=== PATIENT | male | born 1960 | race African-American/Black ===

== ENCOUNTER 2022-04-19 10:24 | Inpatient (IN) | payer OTHER ==
[2022-04-19 11:48] VITALS: BMI 26.4
[2022-04-19] MEDS ORDERED: MAG HYDROX/AL HYDROX/SIMETH 30 ML UNIT-DOSE CUP PO PRN ×2 (15:48→16:09)
[2022-04-19] MEDS ORDERED: P-EPHED 60MG/TRIPROLIDI 2.5MG TABLET PO PRN (15:48)
[2022-04-19] MEDS ORDERED: hydrOXYzine PAMOATE 25 MG CAPSULE (FP) PO PRN ×2 (15:48→16:09)
[2022-04-19] MEDS ORDERED: POLYETHYLENE GLYCOL (HEALTHYLAX) 3350 17 GM PACKET PO PRN ×2 (15:48→16:09)
[2022-04-19] MEDS ORDERED: ACETAMINOPHEN 325 MG TABLET (FP) PO PRN ×3 (15:48→16:09)
[2022-04-19] MEDS ORDERED: IBUPROFEN 400 MG TABLET (FP) PO PRN ×2 (15:48→16:09)
[2022-04-19] MEDS ORDERED: LOPERAMIDE HCL 2 MG CAPSULE PO PRN ×2 (15:48→16:09)
[2022-04-19] MEDS ORDERED: NICOTINE 10 MG CARTRIDGE (INHALER) IH PRN ×2 (15:48→16:09)
[2022-04-19] MEDS ORDERED: MAGNESIUM HYDROX 2400MG/30ML ORAL SUSPENSION 30 ML CUP PO PRN ×2 (15:48→16:09)
[2022-04-19] MEDS ORDERED: guaiFENesin 200 MG/10 ML 10 ML UNIT-DOSE CUPS PO PRN (15:48)
[2022-04-19] MEDS ORDERED: NICOTINE POLACRILEX 4 MG GUM BUC PRN ×2 (15:48→16:09)
[2022-04-19] MEDS ORDERED: BENZOCAINE/MENTHOL (CHLORASEPTIC ) LOZENGE MM PRN ×2 (15:48→16:09)
[2022-04-19] MEDS ORDERED: NICOTINE 21 MG/24 HOURS TOPICAL PATCH TD PRN ×2 (15:48→16:09)
[2022-04-19] MEDS ORDERED: BISMUTH SUBSALICYLATE 524 MG/30 ML PO PRN (16:09)
[2022-04-19] MEDS ORDERED: ONDANSETRON *ODT* 4 MG TABLET SL PRN (16:09)
[2022-04-19] MEDS ORDERED: IBUPROFEN 600 MG TABLET (FP) PO PRN (16:09)
[2022-04-19] MEDS ORDERED: DICYCLOMINE HCL 10 MG CAPSULE PO PRN (16:09)
[2022-04-19] MEDS ORDERED: THIAMINE HCL 100 MG TABLET (FP) PO SCH ×2 (22:00)
[2022-04-19] MEDS ORDERED: MELATONIN 5 MG TABLETS PO SCH ×2 (22:00)
[2022-04-19] MEDS: APIXABAN 5 MG TABLET PO SCH (22:37)
[2022-04-20] MEDS: METHOCARBAMOL 500 MG TABLET PO PRN ×2 (02:34→10:46)
[2022-04-20] MEDS ORDERED: PRENATAL VITAMINS W/ FOLIC ACID TABLET (FP) PO SCH ×2 (10:00)
[2022-04-20] MEDS ORDERED: TORSEMIDE 20 MG TABLET (FP) PO SCH (10:00)
[2022-04-20] MEDS: APIXABAN 5 MG TABLET PO SCH (10:11)
[2022-04-20 12:51] VITALS: PULSE 109; RESP 18
[2022-04-20 15:02] LABS: CALCIUM 8.8 mg/dL (8.5-10.1)
[2022-04-20 15:03] LABS: BLOOD UREA NITROGEN 26.5 mg/dL (7-18)
[2022-04-20 15:05] LABS: CREATININE 1.5 mg/dL (0.55-1.3)
[2022-04-20 15:07] LABS: BILIRUBIN,TOTAL 2.4 mg/dL (0.2-1); HEMATOCRIT 31.1 % (35.4-49); MCH 20.8 pg (25.7-33.7); MCHC 28.8 g/dl (32.0-35.9); MEAN CELL VOLUME 72.2 fl (80-96); MEAN PLT VOLUME 9.3 fl (7.5-11.1); PLATELET COUNT 270 10^3/uL (134-434); RBC 4.31 M/mm3 (4.00-5.60); TOT PROT 7.4 g/dl (6.4-8.2); WHITE BLOOD COUNT 12.6 K/mm3 (4.0-10.0)
[2022-04-20 18:10] VITALS: BP 125/79; TEMP 98.2
[2022-04-20] MEDS ORDERED: APIXABAN 5 MG TABLET PO SCH (22:00)
[2022-04-20] MEDS ORDERED: ATORVASTATIN CA 40 MG TABLET (FP) PO SCH (22:00)
[2022-04-21] MEDS ORDERED: FERROUS SO4 325 MG TABLET (FP) PO SCH (10:00)
[2022-04-21] MEDS ORDERED: METOPROLOL TARTRATE 25 MG TABLET (FP) PO SCH (10:00)
[2022-04-21] MEDS ORDERED: DIGOXIN 0.125 MG TABLET PO SCH (10:00)
[2022-04-21] MEDS ORDERED: SACUBITRIL/VALSARTAN 24 MG-26 MG TABLET PO SCH (10:00)
== END 2022-04-20 18:15 | disposition other institution (70) | DRG 774 ==
LOC: YASAS 10:24 → Y3N 16:20
PROVIDERS: ADMIT Allergy & Immunology; ATTEND Surgery
PROC: HZ2ZZZZ Detoxification Services for Substance Abuse Treatment (ICD-10-PCS; principal; 2022-04-19)
DX: F10.20 Alcohol dependence, uncomplicated (principal); F14.20 Cocaine dependence, uncomplicated; F12.20 Cannabis dependence, uncomplicated; F17.210 Nicotine dependence, cigarettes, uncomplicated; D50.9 Iron deficiency anemia, unspecified; E78.00 Pure hypercholesterolemia, unspecified; I10 Essential (primary) hypertension; I48.91 Unspecified atrial fibrillation; Z79.01 Long term (current) use of anticoagulants; M25.562 Pain in left knee
CPT/HCPCS: 36415; 80053; 80162; 82140; 85027; 86780; 93005; 93010; C9803-CS; U0003; U0005

== ENCOUNTER 2022-04-20 18:38 | Inpatient (IN) | payer OTHER ==
[2022-04-20] MEDS ORDERED: ACETAMINOPHEN 325 MG TABLET (FP) PO PRN (21:16)
[2022-04-20] MEDS ORDERED: MAGNESIUM HYDROX 2400MG/30ML ORAL SUSPENSION 30 ML CUP PO PRN (21:16)
[2022-04-20] MEDS ORDERED: MAG HYDROX/AL HYDROX/SIMETH 30 ML UNIT-DOSE CUP PO PRN (21:16)
[2022-04-20] MEDS ORDERED: NICOTINE 10 MG CARTRIDGE (INHALER) IH PRN (21:16)
[2022-04-20] MEDS ORDERED: BENZOCAINE/MENTHOL (CHLORASEPTIC ) LOZENGE MM PRN (21:16)
[2022-04-20] MEDS ORDERED: LOPERAMIDE HCL 2 MG CAPSULE PO PRN (21:16)
[2022-04-20] MEDS ORDERED: guaiFENesin 200 MG/10 ML 10 ML UNIT-DOSE CUPS PO PRN (21:16)
[2022-04-20] MEDS ORDERED: POLYETHYLENE GLYCOL (HEALTHYLAX) 3350 17 GM PACKET PO PRN (21:16)
[2022-04-20] MEDS ORDERED: P-EPHED 60MG/TRIPROLIDI 2.5MG TABLET PO PRN (21:16)
[2022-04-20] MEDS: APIXABAN 5 MG TABLET PO SCH (22:21)
[2022-04-20] MEDS: MELATONIN 5 MG TABLETS PO SCH (22:22)
[2022-04-20] MEDS: THIAMINE HCL 100 MG TABLET (FP) PO SCH (22:22)
[2022-04-20] MEDS: ATORVASTATIN CA 40 MG TABLET (FP) PO SCH (22:22)
[2022-04-20] MEDS ORDERED: ACETAMINOPHEN 325 MG TABLET (FP) PO ONE (22:22)
[2022-04-20] MEDS: SACUBITRIL/VALSARTAN 24 MG-26 MG TABLET PO SCH (23:14)
[2022-04-21 10:09] LABS: HEMATOCRIT 29.9 % (35.4-49); HEMOGLOBIN 9.1 GM/dL (11.7-16.9); MCH 21.1 pg (25.7-33.7); MCHC 30.3 g/dl (32.0-35.9); MEAN CELL VOLUME 69.5 fl (80-96); PLATELET COUNT 262 10^3/uL (134-434); RDW 21.1 % (11.9-15.9); WHITE BLOOD COUNT 12.5 K/mm3 (4.0-10.0)
[2022-04-21] MEDS: FERROUS SO4 325 MG TABLET (FP) PO SCH (10:21)
[2022-04-21] MEDS: APIXABAN 5 MG TABLET PO SCH ×2 (10:21→23:51)
[2022-04-21] MEDS: PRENATAL VITAMINS W/ FOLIC ACID TABLET (FP) PO SCH (10:21)
[2022-04-21 10:56] LABS: CALCIUM 8.9 mg/dL (8.5-10.1)
[2022-04-21 10:57] LABS: ALBUMIN 4.1 g/dl (3.4-5.0); BLOOD UREA NITROGEN 24.3 mg/dL (7-18); CREATININE 1.5 mg/dL (0.55-1.3)
[2022-04-21 11:00] LABS: PHOSPHOROUS 2.7 mg/dL (2.5-4.9)
[2022-04-21] MEDS: TORSEMIDE 20 MG TABLET (FP) PO SCH (14:25)
[2022-04-21] MEDS: SACUBITRIL/VALSARTAN 24 MG-26 MG TABLET PO SCH ×2 (14:26→23:48)
[2022-04-21] MEDS: DIGOXIN 0.125 MG TABLET PO SCH ×2 (14:28→14:38)
[2022-04-21] MEDS: METOPROLOL TARTRATE 25 MG TABLET (FP) PO SCH (14:28)
[2022-04-21] MEDS: THIAMINE HCL 100 MG TABLET (FP) PO SCH (23:48)
[2022-04-21] MEDS: ATORVASTATIN CA 40 MG TABLET (FP) PO SCH (23:49)
[2022-04-21] MEDS: MELATONIN 5 MG TABLETS PO SCH (23:50)
[2022-04-22] MEDS: PRENATAL VITAMINS W/ FOLIC ACID TABLET (FP) PO SCH (09:57)
[2022-04-22] MEDS: DIGOXIN 0.125 MG TABLET PO SCH (09:59)
[2022-04-22] MEDS: SACUBITRIL/VALSARTAN 24 MG-26 MG TABLET PO SCH ×2 (09:59→21:23)
[2022-04-22] MEDS: FERROUS SO4 325 MG TABLET (FP) PO SCH (09:59)
[2022-04-22] MEDS: APIXABAN 5 MG TABLET PO SCH ×2 (09:59→21:22)
[2022-04-22] MEDS: METOPROLOL TARTRATE 25 MG TABLET (FP) PO SCH (10:00)
[2022-04-22] MEDS: TORSEMIDE 20 MG TABLET (FP) PO SCH (10:40)
[2022-04-22] MEDS: ATORVASTATIN CA 40 MG TABLET (FP) PO SCH (21:22)
[2022-04-22] MEDS: THIAMINE HCL 100 MG TABLET (FP) PO SCH (21:23)
[2022-04-22] MEDS: MELATONIN 5 MG TABLETS PO SCH (21:23)
[2022-04-23] MEDS: PRENATAL VITAMINS W/ FOLIC ACID TABLET (FP) PO SCH (09:44)
[2022-04-23] MEDS: APIXABAN 5 MG TABLET PO SCH ×2 (09:45→21:14)
[2022-04-23] MEDS: DIGOXIN 0.125 MG TABLET PO SCH (09:45)
[2022-04-23] MEDS: FERROUS SO4 325 MG TABLET (FP) PO SCH (09:45)
[2022-04-23] MEDS: TORSEMIDE 20 MG TABLET (FP) PO SCH (11:45)
[2022-04-23] MEDS: METOPROLOL TARTRATE 25 MG TABLET (FP) PO SCH (11:45)
[2022-04-23] MEDS: SACUBITRIL/VALSARTAN 24 MG-26 MG TABLET PO SCH ×2 (11:45→23:26)
[2022-04-23] MEDS: ATORVASTATIN CA 40 MG TABLET (FP) PO SCH (21:14)
[2022-04-23] MEDS: MELATONIN 5 MG TABLETS PO SCH (21:14)
[2022-04-23] MEDS: THIAMINE HCL 100 MG TABLET (FP) PO SCH (21:14)
[2022-04-24] MEDS: DIGOXIN 0.125 MG TABLET PO SCH ×2 (10:10→11:17)
[2022-04-24] MEDS: FERROUS SO4 325 MG TABLET (FP) PO SCH (10:10)
[2022-04-24] MEDS: APIXABAN 5 MG TABLET PO SCH ×2 (10:10→21:34)
[2022-04-24] MEDS: PRENATAL VITAMINS W/ FOLIC ACID TABLET (FP) PO SCH (10:11)
[2022-04-24] MEDS: METOPROLOL TARTRATE 25 MG TABLET (FP) PO SCH (10:16)
[2022-04-24] MEDS: TORSEMIDE 20 MG TABLET (FP) PO SCH (10:30)
[2022-04-24] MEDS: SACUBITRIL/VALSARTAN 24 MG-26 MG TABLET PO SCH ×2 (10:30→23:07)
[2022-04-24] MEDS: ATORVASTATIN CA 40 MG TABLET (FP) PO SCH (21:34)
[2022-04-24] MEDS: MELATONIN 5 MG TABLETS PO SCH (21:34)
[2022-04-24] MEDS: THIAMINE HCL 100 MG TABLET (FP) PO SCH (21:34)
[2022-04-25 07:48] VITALS: RESP 18
[2022-04-25] MEDS: PRENATAL VITAMINS W/ FOLIC ACID TABLET (FP) PO SCH (09:59)
[2022-04-25] MEDS: TORSEMIDE 20 MG TABLET (FP) PO SCH (10:00)
[2022-04-25] MEDS: APIXABAN 5 MG TABLET PO SCH ×2 (10:00→21:23)
[2022-04-25] MEDS: FERROUS SO4 325 MG TABLET (FP) PO SCH (10:01)
[2022-04-25] MEDS: SACUBITRIL/VALSARTAN 24 MG-26 MG TABLET PO SCH ×2 (10:01→21:23)
[2022-04-25] MEDS: DIGOXIN 0.125 MG TABLET PO SCH (13:22)
[2022-04-25] MEDS: METOPROLOL TARTRATE 25 MG TABLET (FP) PO SCH (13:23)
[2022-04-25] MEDS: THIAMINE HCL 100 MG TABLET (FP) PO SCH (21:23)
[2022-04-25] MEDS: ATORVASTATIN CA 40 MG TABLET (FP) PO SCH (21:23)
[2022-04-25] MEDS: MELATONIN 5 MG TABLETS PO SCH (21:23)
[2022-04-26] MEDS: FERROUS SO4 325 MG TABLET (FP) PO SCH (10:05)
[2022-04-26] MEDS: PRENATAL VITAMINS W/ FOLIC ACID TABLET (FP) PO SCH (10:05)
[2022-04-26] MEDS: SACUBITRIL/VALSARTAN 24 MG-26 MG TABLET PO SCH ×2 (10:06→21:43)
[2022-04-26] MEDS: APIXABAN 5 MG TABLET PO SCH ×3 (10:06→21:51)
[2022-04-26] MEDS: DIGOXIN 0.125 MG TABLET PO SCH (10:07)
[2022-04-26] MEDS: TORSEMIDE 20 MG TABLET (FP) PO SCH (13:26)
[2022-04-26] MEDS: METOPROLOL TARTRATE 25 MG TABLET (FP) PO SCH (13:26)
[2022-04-26] MEDS: MELATONIN 5 MG TABLETS PO SCH (21:42)
[2022-04-26] MEDS: ATORVASTATIN CA 40 MG TABLET (FP) PO SCH (21:42)
[2022-04-26] MEDS: THIAMINE HCL 100 MG TABLET (FP) PO SCH (21:43)
[2022-04-27] MEDS: PRENATAL VITAMINS W/ FOLIC ACID TABLET (FP) PO SCH (10:35)
[2022-04-27] MEDS: FERROUS SO4 325 MG TABLET (FP) PO SCH (10:36)
[2022-04-27] MEDS: APIXABAN 5 MG TABLET PO SCH ×2 (10:36→22:14)
[2022-04-27] MEDS: DIGOXIN 0.125 MG TABLET PO SCH (13:32)
[2022-04-27] MEDS: SACUBITRIL/VALSARTAN 24 MG-26 MG TABLET PO SCH ×2 (13:35→22:14)
[2022-04-27] MEDS: METOPROLOL TARTRATE 25 MG TABLET (FP) PO SCH (13:35)
[2022-04-27] MEDS: TORSEMIDE 20 MG TABLET (FP) PO SCH (13:35)
[2022-04-27] MEDS: THIAMINE HCL 100 MG TABLET (FP) PO SCH (22:14)
[2022-04-27] MEDS: ATORVASTATIN CA 40 MG TABLET (FP) PO SCH (22:14)
[2022-04-27] MEDS: MELATONIN 5 MG TABLETS PO SCH (22:14)
[2022-04-28] MEDS: FERROUS SO4 325 MG TABLET (FP) PO SCH (10:09)
[2022-04-28] MEDS: METOPROLOL TARTRATE 25 MG TABLET (FP) PO SCH (10:09)
[2022-04-28] MEDS: APIXABAN 5 MG TABLET PO SCH ×2 (10:09→22:06)
[2022-04-28] MEDS: DIGOXIN 0.125 MG TABLET PO SCH (10:11)
[2022-04-28] MEDS: PRENATAL VITAMINS W/ FOLIC ACID TABLET (FP) PO SCH (10:11)
[2022-04-28] MEDS: TORSEMIDE 20 MG TABLET (FP) PO SCH (11:00)
[2022-04-28] MEDS: SACUBITRIL/VALSARTAN 24 MG-26 MG TABLET PO SCH ×2 (11:00→23:34)
[2022-04-28] MEDS ORDERED: LACTULOSE 20 GM/30 ML UDC (FOR ORAL USE ONLY) PO PRN (11:46)
[2022-04-28] MEDS ORDERED: GABAPENTIN 100 MG CAPSULE PO ONE (15:30)
[2022-04-28] MEDS: THIAMINE HCL 100 MG TABLET (FP) PO SCH (22:06)
[2022-04-28] MEDS: ATORVASTATIN CA 40 MG TABLET (FP) PO SCH (22:06)
[2022-04-28] MEDS: GABAPENTIN 100 MG CAPSULE PO SCH (22:06)
[2022-04-28] MEDS: LACTULOSE 20 GM/30 ML UDC (FOR ORAL USE ONLY) PO SCH (22:07)
[2022-04-28] MEDS: MELATONIN 5 MG TABLETS PO SCH (22:15)
[2022-04-29] MEDS: GABAPENTIN 100 MG CAPSULE PO SCH ×2 (06:23→14:03)
[2022-04-29] MEDS: LACTULOSE 20 GM/30 ML UDC (FOR ORAL USE ONLY) PO SCH ×2 (06:23→14:03)
[2022-04-29 07:14] VITALS: BP 116/71; TEMP 97.8
[2022-04-29] MEDS: TORSEMIDE 20 MG TABLET (FP) PO SCH (10:30)
[2022-04-29] MEDS: SACUBITRIL/VALSARTAN 24 MG-26 MG TABLET PO SCH (10:30)
[2022-04-29] MEDS: FERROUS SO4 325 MG TABLET (FP) PO SCH (10:30)
[2022-04-29] MEDS: APIXABAN 5 MG TABLET PO SCH (10:30)
[2022-04-29] MEDS: PRENATAL VITAMINS W/ FOLIC ACID TABLET (FP) PO SCH (10:30)
[2022-04-29] MEDS: METOPROLOL TARTRATE 25 MG TABLET (FP) PO SCH (10:30)
[2022-04-29] MEDS: DIGOXIN 0.125 MG TABLET PO SCH (10:32)
[2022-04-29 10:37] VITALS: PULSE 98
== END 2022-04-29 14:40 | disposition home or self-care (01) | DRG 772 ==
LOC: YASAS 18:38 → Y5N 18:40
PROVIDERS: ADMIT Allergy & Immunology; ATTEND Psychiatry & Neurology Pain Medicine
PROC: HZ42ZZZ Group Counseling for Substance Abuse Treatment, Cognitive-Behavioral (ICD-10-PCS; principal; 2022-04-20)
DX: F10.20 Alcohol dependence, uncomplicated (principal); F14.20 Cocaine dependence, uncomplicated; F12.20 Cannabis dependence, uncomplicated; F17.210 Nicotine dependence, cigarettes, uncomplicated; I50.9 Heart failure, unspecified; I11.0 Hypertensive heart disease with heart failure; I48.91 Unspecified atrial fibrillation; D50.8 Other iron deficiency anemias; E78.5 Hyperlipidemia, unspecified; R60.0 Localized edema; G89.4 Chronic pain syndrome; I82.409 Acute embolism and thrombosis of unspecified deep veins of unspecified lower extremity; Z79.01 Long term (current) use of anticoagulants; Z95.0 Presence of cardiac pacemaker
CPT/HCPCS: 36415; 80069; 85027

== ENCOUNTER 2022-04-21 18:31 | Emergency (ER) | payer OTHER ==
[2022-04-21 19:03] VITALS: BP 113/66; PULSE 102; RESP 20; TEMP 97.6; BMI 25.7
[2022-04-21] MEDS ORDERED: FUROSEMIDE 40 MG/4 ML INJECTABLE VIAL IVPUSH ONE (19:48)
[2022-04-21] MEDS ORDERED: ACETAMINOPHEN 1000 MG/100 ML BAG IVPB ONE (19:50)
[2022-04-21] MEDS ORDERED: ACETAMINOPHEN INJECTION 100 ML IVPB ONE (19:56)
[2022-04-21] MEDS ORDERED: FUROSEMIDE 40 MG/4 ML INJECTABLE VIAL ONE (19:57)
[2022-04-21 20:47] LABS: BASO % 0.6 % (0-2.0); EOS % 3.2 % (0-4.5); HEMATOCRIT 29.8 % (35.4-49); HEMOGLOBIN 9.4 GM/dL (11.7-16.9); LYMPH % 7.6 % (8-40); MCH 21.8 pg (25.7-33.7); MCHC 31.4 g/dl (32.0-35.9); MEAN CELL VOLUME 69.3 fl (80-96); MEAN PLT VOLUME 8.6 fl (7.5-11.1); MONO % 6.6 % (3.8-10.2); PLATELET COUNT 251 10^3/uL (134-434); RBC 4.29 M/mm3 (4.00-5.60); RDW 21.3 % (11.9-15.9)
[2022-04-21 20:51] LABS: INR 2.41 (0.83-1.09)
[2022-04-21 20:54] LABS: ACTIVATED PTT 31.3 SECONDS (25.2-36.5)
[2022-04-21 21:03] LABS: CALCIUM 8.1 mg/dL (8.5-10.1)
[2022-04-21 21:07] LABS: CREATININE 1.4 mg/dL (0.55-1.3)
[2022-04-21 21:08] LABS: BILIRUBIN,TOTAL 1.2 mg/dL (0.2-1); TOT PROT 6.2 g/dl (6.4-8.2)
[2022-04-21 21:13] LABS: ALBUMIN 3.2 g/dl (3.4-5.0)
[2022-04-21 21:24] LABS: ANISOCYTOSIS 2+; TARGET CELLS 2+
[2022-04-21 21:25] LABS: PLATELET ESTIMATE ADEQUATE
== END 2022-04-21 23:14 | disposition home or self-care (01) ==
LOC: JER 18:31
PROC: 3E0333Z Introduction of Anti-inflammatory into Peripheral Vein, Percutaneous Approach (ICD-10-PCS; principal; 2022-04-21)
PROC: 3E033GC Introduction of Other Therapeutic Substance into Peripheral Vein, Percutaneous Approach (ICD-10-PCS; 2022-04-21)
DX: R22.43 Localized swelling, mass and lump, lower limb, bilateral (principal)
CPT/HCPCS: 36415; 80053; 80162; 83880; 85025; 85610; 85730; 93005; 93010; 93970-TC; 99285-25